=== PATIENT | male | born 1955 | race Caucasian/White ===

== ENCOUNTER → 2016-08-06 | Outpatient (CLI) | payer MEDICARE ==
[~2016-08-06] MED LIST: ACTOS PO; ACTOS30 MG PO; ALLEGRA ALLERG180 MG; ALLEGRA PO; AMBIEN PO; AMBIEN10 MG; AMBIEN10 MG PO; AMIODARONE HCL100 MG PO; AMIODARONE PO; ANTIVERT PO; ASPIR-TRIN325 MG PO; ASPIRIN PO; ASPIRIN81 M2 PO; B COMPLEX1 EACH PO; B12 PO; BAYER ASPIRIN325 M1 PO; BECLOMETHASONE INH; BUMEX PO; BUMEX2 MG PO; BUPROPION XL300 M1 PO; BUPROPION XL300 MG PO; BUSPAR; BUSPIRONE HCL7.5 MG PO; CALCIUM 500 +1 EAC2 PO; CARAFATE1 G PO; CARAFATE1 GM PO; CELEXA PO; CITALOPRAM HBR40 MG PO; CLARITIN10 MG PO; COUMADIN PO; CREATINE 50005000 MG PO; CRESTOR PO; CRESTOR40 MG; CRESTOR40 MG PO; CYMBALTA PO; DULOXETINE HCL60 M1; DULOXETINE HCL60 MG PO; ECOTRIN325 MG PO; FISH OIL 1,0001 CAP PO; FLEXERIL10 MG PO; FLONASE 0.05% N16 G1; FLONASE 0.05% N16 GM; Green Tea PO; IMDUR-ER30 MG PO; ISOSORBIDE MON120 M1; ISOSORBIDE MON120 M1 PO; ISOSORBIDE MONO60 M1 PO; KEFLEX PO; KLONOPIN PO; KLONOPIN1 MG PO; KLONOPIN2 MG PO; LAMOTRIGINE150 MG PO; LASIX PO; LEXAPRO PO; LIPITOR PO; LISINOPRIL PO; LISINOPRIL10 MG PO; LISINOPRIL20 MG PO; LORCET 10-6501 EACH PO; LORTAB 7.5-5001 TAB PO; LOTREL 10/20 MG1 CAP PO; MAGNESIUM400 MG PO; MAXZIDE 75/50 T1 TAB PO; METFORMIN HCL500 M1 PO; NIACIN500 M1 PO; NITROGLYCERIN0.4 MG; NITROGLYGERIN0.4 MG SL; NITROSTAT0.4 MG SL; OXYCODON-ACETA1 EAC1 PO; PACERONE PO; PERCOCET 7.5-31 EACH; PERCOCET5/325 PO; PERCOLONE5 MG PO; PHENERGAN PO; PHENERGAN25 M1 DOB; PLAVIX PO; POTASSIUM GLUC500 MG PO; PRAVACHOL PO; PRAVASTATIN SOD40 MG PO; PRILOSEC PO; PRILOSEC40 MG PO; RANEXA500 MG PO; TAGAMET300 MG PO; TOPROL XL PO; TYLENOL325 M1 PO; VITAMIN D1000 UNIT PO; XANAX0.5 M1 PO; XARELTO10 MG PO; XARELTO20 MG PO; ZESTRIL5 MG PO; ZOCOR PO; ZYRTEC10 M2 PO; [UNRECOGNIZED DRUG - CODE]; [UNRECOGNIZED DRUG - OTHER] PO
--- NOTE | ~2016-08-06 | CT2 ---
[facility] A Service of [facility] & [facility] RADIOLOGY TEXT RESULTS PATIENT: DONOVAN SHIELDS [facility] UN[facility] #: [id number] AGE: [address]: DEBBI REINOSO SEX: M ORDER DR: [id number] [facility] [address] [place] [facility]. [place], [place] [address] [id number] O MR#: [id number] Acc #: [id number] NAME: DONOVAN SHIELDS : 1955 SEX: M STUDY DATE/TIME: 08/06/2016 10:25 UNIT: [facility] ROOM: STUDY DESCRIPTION: CT Abd and Pelv W Cont Attending Physician: Debbi Reinoso Aprn Referring Physician: Debbi Reinoso Aprn Ordering Physician: Debbi Reinoso Aprn Primary Care Physician: Devonte Knowles D.O. 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 TECHNIQUE Axial CT imaging was obtained from the dome of the diaphragm through the symphysis pubis following the administration of intravenous contrast material. This CT exam was performed with one or more of the following radiation dose reduction techniques: automatic exposure control, adjustment of mA and/or kV according to patient size, and iterative reconstruction. FINDINGS Images through the lung bases are clear. There are coronary artery calcifications. The patient has a laparoscopic gastric band. No convincing evidence of gastric band slippage is seen on these images and there is no evidence of obstruction. No focal hepatic lesions are seen. Spleen and adrenal glands are within normal limits as is the proximal small bowel. Pancreas is atrophic. Kidneys also appear unremarkable. There is a small fat-containing umbilical hernia. Urinary bladder and prostate gland within normal limits. There is certainly no evidence of mechanical bowel obstruction. This patient has 2 predominately fatty lesions within the left paraspinous size soft tissues; they actually appear to be connected to one another. The larger component measures up to 8.3 x 5.6 cm while the smaller measures about 3.8 x 3.2 cm. These were not present on the prior exam. They certainly could reflect benign lipomas. They do not appear particularly aggressive on today's examination. Review of bony windows demonstrates some degenerative changes most pronounced at L4-5 where there STS. [facility] A Service of [facility] RADIOLOGY TEXT RESULTS PATIENT: DONOVAN SHIELDS LOCATION: [facility] : 57 UNIT #: [id number] AGE: [address]: DEBBI REINOSO SEX: M ORDER DR: is some intervertebral disc space narrowing. I do not see any aggressive osseous abnormalities. The patient does have some atherosclerotic involvement of the abdominal aorta with extension into the iliac axis. IMPRESSION 1. Within the area of concern, the patient has a bilobed fat attenuation mass measuring up to 8.3 x 5.6 cm within its larger component and 3.2 x 3.8 cm within its smaller component. This certainly could reflect a lipoma. It certainly does not appear particularly aggressive. It was not present on a prior CT from 2009. 2. Changes of prior laparoscopic gastric banding procedure. Band did not show any evidence of slippage and there is no evidence of obstruction. Dictated by... Disha Lemons M.D. THIS IS AN ELECTRONICALLY VERIFIED REPORT Disha Lemons M.D. at 08/06/2016 4:34 PM AFF/to TD: 08/06/2016 14:10 JOB #: [id number] MEDICAL IMAGING REPORT Page 1 of 1 COPY
[2016-08-06 11:31] LABS: POC - CREATININE 0.66 mg/dL (0.64-1.27); POC - GFR >60.0 mL/min (>60)
== END | disposition home or self-care (01) ==
LOC: CCAT 09:09
PROVIDERS: Nurse Practitioner Family
DX: D17.1 Benign lipomatous neoplasm of skin and subcutaneous tissue of trunk (principal); M54.9 Dorsalgia, unspecified; G89.29 Other chronic pain
CPT/HCPCS: 74177; 82565; Q9967

== ENCOUNTER 2016-09-09 13:44 | Emergency (ER) | payer MEDICARE ==
--- NOTE | ~2016-09-09 | EKG ---
PATIENT: DONOVAN SHIELDS UNIT #: [id number] Ventricular Rate: 56 BPM Atrial Rate: 55 BPM QRS Duration: 92 ms Q-T Interval: 444 ms QTC Calculation(Bezet): 428 ms Calculated R [place]: -7 degrees Calculated T [place]: 60 degrees Diagnosis Line: Sinus rhythm with 1st degree A-V block Diagnosis Line: Incomplete right bundle branch block Diagnosis Line: Abnormal ECG Diagnosis Line: When compared with ECG of 24-DEC-2014 09:24, Diagnosis Line: Junctional rhythm has replaced Sinus rhythm Diagnosis Line: Confirmed by MARIELA WU MD ([id number]) on 09/12/2016 Diagnosis Line: 9:37:18 AM INTERPRETING MD: BRYCE STARK
--- NOTE | ~2016-09-09 | CR72 ---
[facility]. [facility] A Service of [facility] & [facility] RADIOLOGY TEXT RESULTS PATIENT: DONOVAN SHIELDS LOCATION: SED : 57 UNIT #: [id number] AGE: [address]: Jose Turner MD SEX: M ORDER DR: [id number] [address] [address] [id number] E MR#: [id number] Acc #: [id number] NAME: DONOVAN SHIELDS : 1955 SEX: M STUDY DATE/TIME: 09/09/2016 13:46 UNIT: SED ROOM: STUDY DESCRIPTION: CR Chest Single View Portable Attending Physician: Jose Turner M.D. Ordering Physician: Jose Turner M.D. Primary Care Physician: Devonte Knowles D.O. MEDICAL IMAGING REPORT This report is preliminary unless electronic signature is present. EXAM Portable chest 09/09/2016 HISTORY 61-year-old male with confusion and altered mental status today. Chest pain beginning yesterday. COMPARISON Chest 12/24/2014 FINDINGS Frontal chest demonstrates clear lungs. No pleural effusion or pneumothorax. Mild cardiomegaly is stable. Mediastinum and pulmonary vasculature unremarkable. Median sternotomy wires. IMPRESSION Stable mild cardiomegaly. No other acute chest findings. Dictated by... Deepak Daigle M.D. THIS IS AN ELECTRONICALLY VERIFIED REPORT Deepak Daigle M.D. at 09/10/2016 4:47 PM ROMAN/channing TD: 09/09/2016 16:39 JOB #: [id number] MEDICAL IMAGING REPORT Page 1 of 1
--- NOTE | ~2016-09-09 | CT71 ---
[facility] A Service [facility] RADIOLOGY TEXT RESULTS PATIENT: DONOVAN SHIELDS LOCATION: SED : 57 UNIT #: [id number] AGE: [address]: Jose Turner MD SEX: M ORDER DR: [id number] [address] [address] [id number] E MR#: [id number] Acc #: [id number] NAME: DONOVAN SHIELDS : 1955 SEX: M STUDY DATE/TIME: 09/09/2016 13:46 UNIT: SED ROOM: STUDY DESCRIPTION: CT Head Wo Contrast Attending Physician: Jose Turner M.D. Ordering Physician: Jose Turner M.D. Primary Care Physician: Devonte Knowles D.O. MEDICAL IMAGING REPORT This report is preliminary unless electronic signature is present. EXAM CT head without contrast 09/09/2016 HISTORY 61-year-old male with confusion and agitation beginning today. Altered mental status. COMPARISON CT head 09/16/2014 TECHNIQUE Routine unenhanced axial images performed through the brain. This CT exam was performed with one or more of the following radiation dose reduction techniques: automatic exposure control, adjustment of mA and/or kV according to patient size, and iterative reconstruction. FINDINGS No hemorrhage, acute infarction, mass lesion, or abnormal extraaxial fluid collection. No midline shift or focal mass effect. Ventricular system is normal in size and configuration. No acute bony abnormality. Visualized paranasal sinuses and mastoid air cells are clear. IMPRESSION No acute intracranial abnormality. Dictated by... Deepak Daigle M.D. THIS IS AN ELECTRONICALLY VERIFIED REPORT Deepak Daigle M.D. at 09/10/2016 4:47 PM [facility] A Service [facility] RADIOLOGY TEXT RESULTS PATIENT: DONOVAN SHIELDS LOCATION: SED : 57 UNIT #: [id number] AGE: [address]: Jose Turner MD SEX: M ORDER DR: ROMAN/channing TD: 09/09/2016 16:21 JOB #: [id number] MEDICAL IMAGING REPORT Page 1 of 1
[~2016-09-09 13:44] MED LIST changes: -B COMPLEX1 EACH PO; -BUSPIRONE HCL7.5 MG PO; -CALCIUM 500 +1 EAC2 PO; -POTASSIUM GLUC500 MG PO; -[UNRECOGNIZED DRUG - OTHER] PO
[2016-09-09 13:56] LABS: BASOPHIL% 0.7 % (0-2.5); EOSINOPHIL# 0.1 X10e3 (0-0.7); EOSINOPHIL% 2.1 % (0.0-7.0); HEMATOCRIT 39.4 % (38.0-50.0); LYMPHOCYTE# 1.2 X10e3 (1.0-3.5); LYMPHOCYTE% 20.4 % (17.0-45.0); MEAN CELL VOLUME 92.3 FL (83-96); MEAN CORPUSCULAR HEMOGLOBIN 30.5 PG (28-34); MEAN PLATELET VOLUME 7.1 FL (6.5-11.5); MONOCYTE# 0.5 X10e3 (0-1.0); MONOCYTE% 8.6 % (3.0-12.0); NEUTROPHIL# 4.1 X10e3 (1.5-7.1); NEUTROPHIL% 68.2 % (40-75); PLATELET COUNT 330 X10e3 (140-420); RED BLOOD COUNT 4.27 X10e (3.90-5.60); RED CELL DISTRIBUTION WIDTH 15.6 % (11.0-15.5)
[2016-09-09 13:57] LABS: INR 1.2; PROTHROMBIN TIME (PATIENT) 13.8 SECONDS (9.5-12.4)
[2016-09-09 14:01] LABS: POC - CKMB 1.7 ng/mL (0.0-7.9); POC - TROPONIN <0.05 ng/mL (<=0.05)
[2016-09-09 14:04] LABS: PARTIAL THROMBOPLASTIN TIME 34.9 SECONDS (25.6-38.1)
[2016-09-09 14:06] LABS: ALBUMIN SERUM 4.5 g/dL (3.5-5.0); BILIRUBIN, DIRECT 0.1 mg/dL (0.0-0.2); BILIRUBIN,INDIRECT 0.3 mg/dL (0.0-0.9); BILIRUBIN,TOTAL 0.4 mg/dL (0.2-2.0); BUN/CREATININE RATIO 12.72; CREATININE SERUM 1.1 mg/dL (0.6-1.4); GLOM FILT RATE Estimated 72.6 mL/min (>60); MAGNESIUM 2.1 mg/dL (1.6-3.0); POTASSIUM 4.1 mmol/L (3.5-5.1); PROTEIN TOTAL SERUM 7.5 g/dL (6.0-8.3)
[2016-09-09 14:10] LABS: DIFF IND NO
[2016-10-04] MEDS ORDERED: BUSPIRONE HCL7.5 MG PO (11:00)
[2016-10-04] MEDS ORDERED: [UNRECOGNIZED DRUG - OTHER] PO (11:02)
[2016-10-04] MEDS ORDERED: RANEXA500 MG PO (11:07)
[2016-10-04] MEDS ORDERED: CALCIUM 500 +1 EAC2 PO (11:09)
[2016-10-04] MEDS ORDERED: B COMPLEX1 EACH PO (11:09)
[2016-10-04] MEDS ORDERED: POTASSIUM GLUC500 MG PO (11:10)
== END 2016-09-09 14:54 | disposition home or self-care (01) ==
LOC: SED 13:44
PROVIDERS: Emergency Medicine
DX: R47.02 Dysphasia (principal); I25.10 Atherosclerotic heart disease of native coronary artery without angina pectoris; E11.9 Type 2 diabetes mellitus without complications; I11.0 Hypertensive heart disease with heart failure; I50.9 Heart failure, unspecified; Z86.73 Personal history of transient ischemic attack (TIA), and cerebral infarction without residual deficits; F17.210 Nicotine dependence, cigarettes, uncomplicated; Z79.82 Long term (current) use of aspirin; Z79.899 Other long term (current) drug therapy; Z88.8 Allergy status to other drugs, medicaments and biological substances
CPT/HCPCS: 36415; 70450; 71010; 80048; 80076; 82553; 82947; 83735; 83880; 84484; 85025; 85610; 85730; 93005; 99284

== ENCOUNTER → 2016-09-19 | Outpatient (CLI) | payer MEDICARE ==
[~2016-09-19] MED LIST changes: +B COMPLEX1 EACH PO; +BUSPIRONE HCL7.5 MG PO; +CALCIUM 500 +1 EAC2 PO; +POTASSIUM GLUC500 MG PO; +[UNRECOGNIZED DRUG - OTHER] PO
--- NOTE | ~2016-09-19 | US37 ---
[facility] A Service of [facility] RADIOLOGY TEXT RESULTS PATIENT: DONOVAN SHIELDS LOCATION: SNIV : 57 UNIT #: [id number] AGE: [address]: PARI CAM DO SEX: M ORDER DR: [id number] [address] [address] [id number] O MR#: [id number] Acc #: [id number] NAME: DONOVAN SHIELDS : 1955 SEX: M STUDY DATE/TIME: 09/19/2016 10:05 UNIT: SNIV ROOM: STUDY DESCRIPTION: US Carotid W/Doppler Bilateral Attending Physician: Pari Cam D.O. Referring Physician: Pari Cam D.O. Ordering Physician: Pari Cam D.O. Primary Care Physician: Pari Cam D.O. MEDICAL IMAGING REPORT This report is preliminary unless electronic signature is present. EXAM Bilateral carotid Doppler ultrasound date: 09/19/2016 HISTORY Transient ischemic attack 2 weeks ago. New onset confusion 2 weeks. COMPARISON Bilateral carotid Doppler ultrasound 01/30/2013. PROCEDURE Real time mcneil-scale, color Doppler and spectral Doppler imaging was performed of the bilateral cervical carotid arteries and vertebral arteries. Estimated stenosis is based on standard NASCET methodology. FINDINGS Only mild calcific plaquing is demonstrated within the bilateral carotid bulbs, proximal right external carotid artery, mid-left common carotid artery. Of special note, the left internal carotid artery in its mpn-ow-haodtt segments cannot be visualized either or color or spectral Doppler imaging. Only the proximal left internal carotid artery can be visualized with normal peak systolic velocity 59.8 cm/sec. Left external carotid artery is patent. Left vertebral artery is patent with antegrade flow. The right internal carotid artery is imaged in its lvg-qj-kexiqa segments with peak systolic velocity of the mid internal carotid 36.0 cm per second and distal internal carotid artery 33.3 cm per second. Peak systolic velocity in the proximal right internal carotid artery is not documented by the technologist. IMPRESSION 1. Limited examination. The iru-np-iolgpn left internal carotid artery [facility] A Service of [facility] RADIOLOGY TEXT RESULTS PATIENT: DONOVAN SHIELDS [id number] : 57 UNIT #: [id number] AGE: [address]: PARI CAM DO SEX: M ORDER DR: cannot be is satisfactorily visualized on today's examination, the technologist failed to document the peak systolic velocity in the proximal right internal carotid artery as well. With regards to the left internal carotid artery, it is unclear whether it is obscured by artifact, but mid to distal left ICA occlusion cannot be excluded on basis of this study alone. Dedicated CT angiography of the neck would be recommended for further evaluation. 2. The imaged portions of the right internal carotid artery and proximal left internal carotid artery appear patent with normal spectral Doppler waveforms and normal peak systolic velocities. 3. Bilateral vertebral arteries are patent with antegrade flow. 1. Dictated by... Sonam Byrne M.D. THIS IS AN ELECTRONICALLY VERIFIED REPORT Sonam Byrne M.D. at 09/21/2016 7:14 AM Jori TD: 09/19/2016 12:53 JOB #: [id number] MEDICAL IMAGING REPORT Page 1 of 1
--- NOTE | ~2016-09-19 | MR17 ---
[facility]. [facility] A Service of [facility] & [facility] RADIOLOGY TEXT RESULTS PATIENT: DONOVAN SHIELDS LOCATION: SNIV : 57 UNIT #: [id number] AGE: [address]: PARI CAM DO SEX: M ORDER DR: [id number] [place] [id number] O MR#: [id number] Acc #: [id number] NAME: DONOVAN SHIELDS : 1955 SEX: M STUDY DATE/TIME: 09/19/2016 10:43 UNIT: SN[facility] ROOM: STUDY DESCRIPTION: MR Brain WWo Contrast Attending Physician: Pari Cam D.O. Referring Physician: Pari Cam D.O. Ordering Physician: Pari Cam D.O. Primary Care Physician: Pari Cam D.O. MRI CENTER REPORT This report is preliminary unless electronic signature is present. EXAM MRI of the brain with and without HISTORY Vertigo, memory loss, TIA, intense sharp pain/headache right temporoparietal area, episodes of acute memory loss and confusion, lasting 3-4 days over the past 10 years, 2-3 times progressively worsening, history of diabetes and hypertension. COMMENT MRI of the brain was performed prior to and following intravenous administration of 20 mL of MultiHance on a 1.5T wide bore system. There is no evidence for a recent ischemic insult on the diffusion series. Mild atrophy in general for age group. No extraaxial fluid collection. The mastoid air cells are clear. The visualized paranasal sinuses are clear. The major intracranial flow voids are maintained. Mild prominence of perivascular spaces and mild white matter signal abnormality nonspecific likely due to small vessel disease. Largest most focal lesion left periatrial white matter is about 7 mm in dimension. There is no MRI evidence for intracranial hemorrhage. No intracranial mass effect. Following contrast administration, there is no pathologic intracranial enhancement. There is no intracranial mass lesion or mass effect. IMPRESSION 1. Mild generalized atrophy for age group. 2. Mild nonspecific white matter disease likely due to small vessel disease and within the range of typically seen in age group. [facility] A Service of [facility] & [facility] RADIOLOGY TEXT RESULTS PATIENT: DONOVAN SHIELDS LOCATION: SNIV : 57 UNIT #: [id number] AGE: [address]: PRAI CAM DO SEX: M ORDER DR: Dictated by... Rosario Silverman M.D. THIS IS AN ELECTRONICALLY VERIFIED REPORT Rosario Silverman M.D. at 09/20/2016 5:03 PM CLEMENCIA/delvis TD: 09/20/2016 08:20 JOB #: [id number] MRI CENTER REPORT Page 1 of 1
[2016-09-19 14:00] LABS: POC - CREATININE 1.11 mg/dL (0.64-1.27); POC - GFR >60.0 mL/min (>60)
== END | disposition home or self-care (01) ==
LOC: SNIV 09:46
PROVIDERS: Family Medicine
DX: G45.9 Transient cerebral ischemic attack, unspecified (principal); R51 Headache; E53.8 Deficiency of other specified B group vitamins; R42 Dizziness and giddiness; R41.3 Other amnesia; R90.82 White matter disease, unspecified
CPT/HCPCS: 70553; 82565; 93880; A9581

== ENCOUNTER 2016-09-22 02:00 | Emergency (ER) | payer MEDICARE ==
--- NOTE | ~2016-09-22 | EKG ---
PATIENT: DONOVAN SHIELDS UNIT #: [id number] Ventricular Rate: 72 BPM Atrial Rate: 72 BPM P-R Interval: 202 ms QRS Duration: 108 ms Q-T Interval: 426 ms QTC Calculation(Bezet): 466 ms P [place]: 13 degrees Calculated R [place]: -12 degrees Calculated T [place]: 66 degrees Diagnosis Line: Normal sinus rhythm Diagnosis Line: Incomplete right bundle branch block Diagnosis Line: Borderline ECG Diagnosis Line: Diagnosis Line: Confirmed by CINDY HDEZ MD ([id number]) on Diagnosis Line: 09/26/2016 8:50:25 AM INTERPRETING MD: KETTY STARK
--- NOTE | ~2016-09-22 | CR72 ---
[facility]. [facility] A Service of [facility] & [facility] RADIOLOGY TEXT RESULTS PATIENT: DONOVAN SHIELDS LOCATION: SED : 57 UNIT #: [id number] AGE: [address]: Lianna Mcconnell MD SEX: M ORDER DR: [id number] [address] [address] [id number] E MR#: [id number] Acc #: [id number] NAME: DONOVAN SHIELDS : 1955 SEX: M STUDY DATE/TIME: 09/22/2016 2:25 UNIT: SED ROOM: STUDY DESCRIPTION: CR Chest Single View Portable Attending Physician: Lianna Mcconnell M.D. Ordering Physician: Lianna Mcconnell M.D. Primary Care Physician: Devonte Knowles D.O. MEDICAL IMAGING REPORT This report is preliminary unless electronic signature is present. EXAM Single view chest. INDICATION Chest pain radiating into the left arm. FINDINGS Single, portable, AP view of the chest compared to 09/09/2016. The heart is enlarged. Patient status post CABG. This is unchanged. Lungs are clear. No pleural effusion. IMPRESSION Stable cardiomegaly in a patient status post CABG. Dictated by... Laz Baum M.D. THIS IS AN ELECTRONICALLY VERIFIED REPORT Laz Baum M.D. at 09/22/2016 11:09 PM LISY/flavia TD: 09/22/2016 07:33 JOB #: [id number] MEDICAL IMAGING REPORT Page 1 of 1
[~2016-09-22 02:00] MED LIST changes: -B COMPLEX1 EACH PO; -BUSPIRONE HCL7.5 MG PO; -CALCIUM 500 +1 EAC2 PO; -POTASSIUM GLUC500 MG PO; -[UNRECOGNIZED DRUG - OTHER] PO
[2016-09-22 02:20] LABS: BASOPHIL# 0.1 X10e3 (0-0.3); BASOPHIL% 0.8 % (0-2.5); DIFF IND NO; EOSINOPHIL# 0.2 X10e3 (0-0.7); EOSINOPHIL% 1.8 % (0.0-7.0); HEMATOCRIT 40.4 % (38.0-50.0); HEMOGLOBIN 13.5 gm/dL (13.0-16.0); LYMPHOCYTE# 2.1 X10e3 (1.0-3.5); MEAN CELL VOLUME 92.4 FL (83-96); MEAN CORPUSCULAR HGB CONC 33.6 g/dL (30-36); MEAN PLATELET VOLUME 6.7 FL (6.5-11.5); MONOCYTE% 10.4 % (3.0-12.0); NEUTROPHIL# 5.9 X10e3 (1.5-7.1); PLATELET COUNT 349 X10e3 (140-420); RED BLOOD COUNT 4.37 X10e (3.90-5.60); RED CELL DISTRIBUTION WIDTH 15.5 % (11.0-15.5); WHITE BLOOD COUNT 9.1 X10e3 (4.0-10.5)
[2016-09-22 02:29] LABS: INR 1.4; PROTHROMBIN TIME (PATIENT) 15.3 SECONDS (9.5-12.4)
[2016-09-22 02:33] LABS: POC - CKMB 1.6 ng/mL (0.0-7.9); POC - TROPONIN <0.05 ng/mL (<=0.05)
[2016-09-22 02:36] LABS: PARTIAL THROMBOPLASTIN TIME 36.1 SECONDS (25.6-38.1)
[2016-09-22 02:37] LABS: ALBUMIN SERUM 4.8 g/dL (3.5-5.0); ALKALINE PHOSPHATASE 98 U/L (32-92); ALT (SGPT) 18 U/L (10-40); AST (SGOT) 25 U/L (10-42); BILIRUBIN,TOTAL 0.2 mg/dL (0.2-2.0); BLOOD UREA NITROGEN 19 mg/dL (9-23); BUN/CREATININE RATIO 11.17; CARBON DIOXIDE 28 mmol/L (22-31); CHLORIDE 97 mmol/L (100-111); CREATININE SERUM 1.7 mg/dL (0.6-1.4); GLOM FILT RATE Estimated 42.9 mL/min (>60); GLUCOSE FASTING 112 mg/dL (70-110); MAGNESIUM 1.9 mg/dL (1.6-3.0); POTASSIUM 3.6 mmol/L (3.5-5.1); PROTEIN TOTAL SERUM 7.4 g/dL (6.0-8.3); SODIUM 133 mmol/L (135-145)
[2016-09-22 02:39] LABS: BILIRUBIN, DIRECT <0.1 mg/dL (0.0-0.2); BILIRUBIN,INDIRECT 0.1 mg/dL (0.0-0.9)
[2016-09-22 04:29] LABS: POC - TROPONIN <0.05 ng/mL (<=0.05)
[2016-10-04] MEDS ORDERED: BUSPIRONE HCL7.5 MG PO (11:00)
[2016-10-04] MEDS ORDERED: [UNRECOGNIZED DRUG - OTHER] PO (11:02)
[2016-10-04] MEDS ORDERED: RANEXA500 MG PO (11:07)
[2016-10-04] MEDS ORDERED: CALCIUM 500 +1 EAC2 PO (11:09)
[2016-10-04] MEDS ORDERED: B COMPLEX1 EACH PO (11:09)
[2016-10-04] MEDS ORDERED: POTASSIUM GLUC500 MG PO (11:10)
== END 2016-09-22 05:04 ==
LOC: SED 02:00
PROVIDERS: Student in an Organized Health Care Education/Training Program
DX: I20.0 Unstable angina (principal); I11.0 Hypertensive heart disease with heart failure; I50.9 Heart failure, unspecified; E11.9 Type 2 diabetes mellitus without complications; Z95.1 Presence of aortocoronary bypass graft
CPT/HCPCS: 36415; 71010; 80048; 80076; 82553; 83735; 83880; 84484; 85025; 85610; 85730; 93005; 96374; 99285; J2270

== ENCOUNTER → 2016-10-04 | Outpatient (CLI) | payer MEDICARE ==
[~2016-10-04] MED LIST changes: +B COMPLEX1 EACH PO; +BUSPIRONE HCL7.5 MG PO; +CALCIUM 500 +1 EAC2 PO; +POTASSIUM GLUC500 MG PO; +[UNRECOGNIZED DRUG - OTHER] PO
[2016-10-04 12:20] LABS: CALCIUM SERUM 9.2 mg/dL (8.4-10.2); GLOM FILT RATE Estimated 81.5 mL/min (>60); POTASSIUM 4.1 mmol/L (3.5-5.1)
== END | disposition home or self-care (01) ==
LOC: CAMB 10:34 → EDSTATUS 11:00
PROVIDERS: Surgery
DX: R22.2 Localized swelling, mass and lump, trunk (principal)
CPT/HCPCS: 36415; 80048

== ENCOUNTER → 2016-10-12 | Day surgery (SDC) | payer MEDICARE ==
--- NOTE | ~2016-10-12 | OR ---
Unit #: [id number] #: [id number] Patient: DONOVAN SHIELDS [id number] [address] [address] [id number] O MR#: [id number] NAME: DONOVAN SHIELDS ROOM: Date of Procedure: 10/12/2016 Admission Date: 10/12/2016 Surgeon: Tico Oliva M.D. : 1955 Trucker(s): None. Attending Physician: Tico Oliva M.D. Primary Care Physician: Devonte Knowles D.O. PROCEDURE OPERATIVE NOTE PREOPERATIVE DIAGNOSIS Subcutaneous mass left flank. POSTOPERATIVE DIAGNOSIS 20 cm x 10 cm subcutaneous mass. PROCEDURE PERFORMED Excision of subcutaneous mass down to muscle fascia. ANESTHESIA General anesthesia, ESTIMATED BLOOD LOSS Minimal. IV FLUIDS 500 Crystalloid. COMPLICATIONS None. INDICATIONS The patient is a 61-year-old gentleman who presents with an enlarging mass on his left flank. He presents for excision. PROCEDURE The patient was taken to operating room an placed in supine position. General anesthesia was induced. He was then placed in prone position. Incision was then made, measuring approximately 15 cm. Then dissected around the lesion. This seemed to be a lipoma, although there was some very firm areas deep to the muscle fascia. This was excised in its entirety. Omero-Ames drain was then placed and hemostasis was obtained and then closed with 2-0 Vicryl and jessica to the skin. Patient tolerated the procedure well and sent to recovery in good condition. Dictated by... Lisbet Calles Unit #: [id number] #: [id number] Patient: DONOVAN SHIELDS TD: 10/12/2016 11:56 JOB #: [id number] PROCEDURE OPERATIVE NOTE Page 1 of 1 X Tico Oliva MD X PROCEDURE OPERATIVE NOTE
== END | disposition home or self-care (01) ==
LOC: CSUR 05:34
DX: D17.1 Benign lipomatous neoplasm of skin and subcutaneous tissue of trunk (principal); I25.10 Atherosclerotic heart disease of native coronary artery without angina pectoris; E11.9 Type 2 diabetes mellitus without complications; I10 Essential (primary) hypertension; G47.30 Sleep apnea, unspecified; E78.00 Pure hypercholesterolemia, unspecified; E66.01 Morbid (severe) obesity due to excess calories; K21.9 Gastro-esophageal reflux disease without esophagitis; M19.90 Unspecified osteoarthritis, unspecified site; F17.210 Nicotine dependence, cigarettes, uncomplicated; Z68.42 Body mass index [BMI] 45.0-49.9, adult; Z88.8 Allergy status to other drugs, medicaments and biological substances; Z86.010 Personal history of colon polyps; Z79.82 Long term (current) use of aspirin; Z79.899 Other long term (current) drug therapy; Z79.01 Long term (current) use of anticoagulants; Z79.84 Long term (current) use of oral hypoglycemic drugs; Z87.01 Personal history of pneumonia (recurrent); Z95.1 Presence of aortocoronary bypass graft; Z95.5 Presence of coronary angioplasty implant and graft; Z98.84 Bariatric surgery status; Z98.890 Other specified postprocedural states
CPT/HCPCS: 82947; 88304; J0690; J2250; J3010